=== PATIENT | male | born 1955 | race Caucasian/White ===

== ENCOUNTER → 2020-04-11 14:05 | Outpatient (CLI) | payer MEDICARE, OTHER, SELFPAY ==
[2020-04-11 15:20] LABS: Add Manual Diff / Slide Review NO; Basophils Absolute Auto 100 /uL (0-100); Basophils Percent Auto 0.7 % (0-2); Eosinophils Absolute Auto 100 /uL (0-450); Eosinophils Percent Auto 1.5 % (2-4); Hematocrit 40.9 % (41-53); Hemoglobin 14.6 g/dL (13.5-17.5); Lymphocytes Absolute Auto 1700 /uL (1100-4500); Lymphocytes Percent Auto 18.6 % (25-40); Mean Corpuscular HGB Conc 35.6 % (30-36); Mean Corpuscular Hemoglobin 31.1 PG (26-34); Mean Corpuscular Volume 87.4 fL (80-100); Monocytes Absolute Auto 800 /uL (0-900); Monocytes Percent Auto 8.6 % (3-14); Neutrophils Absolute Auto 6300 /uL (1500-7000); Neutrophils Percent Auto 70.6 % (50-75); Platelet Count 228 X10^3/uL (150-400); Red Blood Cell Count 4.68 X10^6/uL (4.5-5.9); Red Cell Distribution Width 13.9 % (11.6-14.8); White Blood Cell Count 8.9 X10^3/uL (4.5-11.0)
[2020-04-11 16:08] LABS: Alanine Aminotransferase 33 IU/L (<50); Albumin 4.4 g/dL (3.5-5.0); Albumin Globulin Ratio 1.6 (1.0-2.8); Alkaline Phosphatase 44 U/L (38-126); Aspartate Aminotransferase 39 IU/L (17-59); BUN Creatinine Ratio 15.1 (6-22); Bilirubin Total 0.5 mg/dL (0.2-1.3); Blood Urea Nitrogen 14 mg/dL (9-20); Calcium 9.7 mg/dL (8.4-10.2); Carbon Dioxide 23 mmol/L (22-32); Chloride 108 mmol/L (98-107); Estimated Glomerular Filt Rate > 60.0 mL/min (>60); Globulin 2.8 g/dL (1.7-4.1); Glucose 88 mg/dL (80-110); HEMOLYSIS < 15 (0-50); Potassium 3.9 mmol/L (3.4-5.1); Sodium 139 mmol/L (137-145); Total Protein 7.2 g/dL (6.3-8.2)
[2020-04-11 16:15] LABS: NT-proBNP (BNP-Adult 18+) 206 pg/mL (<125)
== END ==
PROVIDERS: Referring Provider Internal Medicine Cardiovascular Disease; Visit Provider Internal Medicine Cardiovascular Disease
DX: R06.09 Other forms of dyspnea (principal); I50.42 Chronic combined systolic (congestive) and diastolic (congestive) heart failure
CPT/HCPCS: 36415; 80053; 83880; 85025

== ENCOUNTER 2020-07-03 15:31 | Emergency (ER) | payer MEDICARE, OTHER, SELFPAY ==
[2020-07-03 15:43] VITALS: BP 161/83; PULSE 67; RESP 18; TEMP 36.5; O2SAT 96; BMI 33.7
--- NOTE | 2020-07-03 15:56 | ED_ITS ---
HPI - Male Genitourinary General Chief complaint: Urogenital-Male Stated complaint: blood in urine, has a cath in. Time Seen by Provider: 07/03/20 15:40 Source: patient Mode of arrival: Ambulatory Limitations: no limitations History of Present Illness HPI Narrative: 64-year-old gentleman with a history of BPH, hyperlipidemia, hypertension, reflux and recurrent sinus issues with 2 coronary artery stents presents with recurrent hematuria. He 1st had an episode of hematuria on June 22 was seen at [facility] eventually hospitalized with hematuria and acute urinary retention. Was discharged home with [facility][id number] and assumed he was supposed to complete 14 days of antibiotics. A home health nurse was out today and noticed increasing hematuria. He had noticed some bleeding last night that was significantly worse this morning. He talked to Dr. Pinto, urologist with whom he has his 1st appointment on July 11, and her nurse recommended that he come to the ER for additional evaluation. Approximately an hour ago the hematuria seem to have stopped and over the last hour he has had mostly yellow urine output from his catheter. At 1 point he did have some blood clots at no point did he ever have blood clot significant enough that it impaired catheter flow. He describes no fevers cough, chills, chest pain, palpitations, dyspnea, lower extremity edema, abdominal pain or flank pain at this time Related Data Allergies Allergy/AdvReac Type Severity Reaction Status Date / Time No Known Drug Allergies Allergy Verified 07/03/20 17:58 Review of Systems Review of Systems Narrative: Remainder of review of systems including constitutional, ENT, cardiovascular, respiratory, GI, , musculoskeletal, skin, neurologic and psychiatric systems reviewed and are unremarkable except as noted in HPI. Patient History Medical History Acid reflux (Acute) BPH (benign prostatic hyperplasia) (Acute) Coronary artery disease (Acute) Hyperlipidemia (Acute) Hypertension (Acute) Social History Smoking Status: Former smoker Smoking Status: Former smoker alcohol intake frequency: a few times a month Alcohol type: wine Substance Use Type: does not use Exam Narrative Exam Narrative: General: Healthy appearing, in no acute distress. Able to give a complete and coherent history. Well-nourished well-developed HEENT: Moist mucous membranes, normal sclera with reactive pupils, Respiratory: Lungs are clear to auscultation, no wheezing no rales no rhonchi. Full and symmetrical air movement Cardiac: Regular rate and rhythm no murmurs no bruits Abdomen: Soft nontender good bowel tones, no flank pain Skin: Warm and dry, no rashes Neurologic: Grossly neurologically intact with no obvious asymmetries or abnormalities Extremities: No trauma, well perfused Psych: Cooperative, appropriate insight and affect : Silverio catheter in place draining blood-tinged urine without clots Initial Vital Signs Initial Vital Signs: Vital Signs Temperature 97.7 F 07/03/20 15:43 Pulse Rate 67 07/03/20 15:43 Respiratory Rate 18 07/03/20 15:43 Blood Pressure 161/83 H 07/03/20 15:43 Pulse Oximetry 96 07/03/20 15:43 Course Orders Ordered: ED Orders 07/03/20 16:23 Urine Microscopic Stat Vital Signs Vital signs: Vital Signs - 8 hr 07/03/20 15:43 07/03/20 17:42 Temperature 97.7 F Pulse Rate 67 80 Respiratory Rate 18 Blood Pressure 161/83 H 148/76 H Pulse Oximetry 96 99 MDM - Male Genitourinary Medical Records Attestation: I reviewed the patient's medical records. Lab Data Lab results narrative: Labs from [facility] or available. Urine from June 22 shows 100,000 E coli and is pansensitive. Cipro should continue to be an appropriate antibiotic for him based on these results Labs: Lab Results 07/03/20 Range/Units 16:23 Urine RBC 30-100/hpf H (0-5/HPF) Urine WBC 0-1/hpf (0-5/HPF) Ur Squamous Epith Cells 0-1 /hpf (0-5/HPF) Urine Bacteria None seen (None) Ur Culture Indicated? Cult not indicated Urine Dip Bedside Urine Glucose Negative Bedside Urine Bilirubin - Negative Bedside Urine Ketone - Negative Urine Specific [place] 1.015 Bedside Urine Occult Blood +++ Bedside Urine pH 6.0 Bedside Urine Protein - Negative Bedside Urine Urobilinogen - Negative Bedside Urine Nitrite - Negative Bedside Urine Leukocytes - Negative Esterase MDM Narrative Medical decision making narrative: 64-year-old gentleman with recent UTI gross hematuria and BPH Silverio catheter in place. 24 hours of recurrent hematuria but at this point seems to be clearing. At no point has his catheter been blocked with clots. Urinalysis today suggests only blood with no evidence of infection culture will be pending. Based on urine culture from June 22 he should continue the ciprofloxacin for the full 14 day course as originally prescribed and should be able to discontinue the ciprofloxacin on July 06. Silverio catheter remains in place. No evidence of sepsis. Patient is safe for home discharge with all appropriate follow-up already scheduled. Discharge Plan Departure Patient Disposition: Home Clinical Impression: BPH (benign prostatic hyperplasia) Qualifiers: Lower urinary tract symptom presence: symptoms present Lower urinary tract symptom detail: urinary obstruction Qualified Code(s): N40.1 - Benign prostatic hyperplasia with lower urinary tract symptoms Hypertension Qualifiers: Hypertension type: essential hypertension Qualified Code(s): I10 - Essential (primary) hypertension Hematuria Qualifiers: Hematuria type: gross Qualified Code(s): R31.0 - Gross hematuria Discharge Date/Time: 07/03/20 17:58 Instructions: How to Care for Your Silverio Catheter -- Male Activity Restrictions/Additional Instructions: Thank you for coming in today Your urinalysis today does not suggest a recurrent bladder infection. Your lab work from [facility] shows an E coli bladder infection on June 22 that was sensitive to all the antibiotics that we tested for. This means that the ciprofloxacin that you are currently taking remains the perfect drug for you. You should complete a full 14 day course. As it was started on June 22 you can stop after you have taken the evening dose on July 06. You may still have some intermittent bleeding from your catheter. As long as urine is still flowing and there are some any clots that you are blocking the catheter there is not much more to do about that at this time. Please keep your appointment with on July 11 as scheduled If you have further problems, increasing pain, flank pain, fevers, chills or obstructing clots in your catheter please feel free to return to the emergency department Referrals: Alison Pinto MD [Non-Staff] -
[2020-07-03 16:44] LABS: Bacteria Urine None Seen
[2020-07-03 16:56] LABS: Culture Indicated Urine Cult Not Indicated; RBC Urine 30-100/HPF (0-5/HPF); Squamous Epithelial Cell Urine 0-1 /HPF (0-5/HPF); WBC Urine 0-1/HPF (0-5/HPF)
[2020-07-03 17:42] VITALS: BP 148/76; PULSE 80; O2SAT 99
== END 2020-07-03 17:58 | disposition home or self-care (01) ==
PROVIDERS: Emergency Provider Emergency Medicine
DX: N40.1 Benign prostatic hyperplasia with lower urinary tract symptoms (principal); I10 Essential (primary) hypertension; R31.0 Gross hematuria; E78.5 Hyperlipidemia, unspecified; Z95.5 Presence of coronary angioplasty implant and graft
CPT/HCPCS: 81003; 81015; 99282

== ENCOUNTER → 2020-07-09 12:12 | Outpatient (CLI) | payer MEDICARE, OTHER, SELFPAY ==
--- NOTE | 2020-07-09 | DI.RAD.S_ITS ---
PROCEDURE: FL BARIUM SWALLOW INDICATIONS: Gastro-esophageal reflux disease without esophagit COMPARISON: [facility], , UPPER GI AIR CONTRAST WITH KUB, 08/30/2007, 9:45. FINDINGS: Function: There is normal esophageal peristalsis. No elicited gastroesophageal reflux. There is normal transit of a calibrated barium tablet through the esophagus into the stomach. Morphology: There is a large Zenker's diverticulum measuring 2.4 x 4.2 cm. A small hiatal hernia is present. Air-contrast images demonstrate normal mucosal morphology. No esophageal strictures ore xtrinsic mass effects or diverticula. Limited images of the stomach demonstrate normal appearance. IMPRESSION: 1. A large Zenker's diverticulum. 2. Small hiatal hernia. Dictated by: Mario White M.D. on 07/09/2020 at 13:30 Approved by: Mario White M.D. on 07/09/2020 at 13:33
== END ==
PROVIDERS: Referring Provider Internal Medicine Pulmonary Disease; Visit Provider Internal Medicine Pulmonary Disease
DX: K21.9 Gastro-esophageal reflux disease without esophagitis (principal); K22.5 Diverticulum of esophagus, acquired; K44.9 Diaphragmatic hernia without obstruction or gangrene
CPT/HCPCS: 74220

== ENCOUNTER → 2023-02-01 13:05 | Outpatient (CLI) | payer MEDICARE, OTHER, SELFPAY ==
--- NOTE | 2023-02-01 | DI.CT.S_ITS ---
PROCEDURE: CT CHEST WO CON INDICATIONS: Solitary pulmonary nodule TECHNIQUE: Noncontrast 2.0-2.5 mm thick sections acquired from the pulmonary apices to the posterior costophrenic angles. 7 mm thick axial MIP and 5 mm coronal and sagittal reformats were then acquired. A low radiation dose technique was utilized. COMPARISON: [facility], CT, CT-IVP, 07/05/2012, 10:12. [facility], RG, CT THORAX W/O CONTRAST, 12/18/2021, 12:41. (2019 CT not available). FINDINGS: Image quality: Diagnostic, given the low radiation dose technique. Lungs and pleura: A few pulmonary nodules. For example: -Right middle lobe measuring 0.7 cm, (3/174), previously 0.8 cm on 12/18/2021. Reported as stable since 06/24/[address] report. -Left lower lobe measuring 0.6 cm, (3/164), previously 0.7 cm, and more remotely 0.6 cm on 07/05/2012. Tree-in-bud nodular opacity in the inferior aspect of the right middle lobe is nearly resolved. No significant acute airspace opacity. The airways are clear. No pleural effusion. No pneumothorax. Mediastinum: Heart size is normal. Three-vessel coronary artery calcifications. No pericardial effusion. No mediastinal adenopathy by size criteria. Thoracic aorta and central pulmonary arteries are normal in size. Calcification at the aortic arch. Esophagus is normal in caliber. No hiatal hernia. Bones and chest wall: No suspicious bony lesions. No vertebral body compression fractures. No axillary or supraclavicular adenopathy by size criteria. Thyroid gland is unremarkable. Abdomen: Visualized upper abdomen solid organs and bowel loops appear normal in the absence of contrast. IMPRESSION: 1. No new or enlarging pulmonary nodules. Right middle lobe and left lower lobe pulmonary nodules are unchanged. The left lower lobe pulmonary nodule is stable since at least 2011 suggesting a benign etiology. Follow-up CT chest could be considered. 2. Right middle lobe tree-in-bud nodular opacity is essentially resolved. 3. Three-vessel coronary artery calcifications. Fleischner Society criteria for SOLID lung nodule followup. Nodule size (mm)Low-risk patientHigh-risk patient<6 (single or multiple)No routine followup.Optional CT at 12 months. 6-8 (single or multiple)CT at 6-12 months, then optional CT at 18-24 mo.CT at 6-12 months, then CT at 18-24 months. >8 (single)CT at 3 months, PET-CT, or biopsy. Same as for low-risk pts. >8 (multiple)CT at 3-6 months, then optional CT at 18-24 mo.CT at 3-6 months, then CT at 18-24 months. Fleischner Society criteria for SUB-SOLID lung nodule followup. Solitary pure ground-glass nodules<6 mm (ground glass or part solid)No followup needed. 6 mm or larger (ground glass)CT at 6-12 months to confirm persistence, then CT every 2 years until 5 years.6 mm or larger (part solid)CT at 3-6 months to confirm persistence, then annual CT until 5 years if unchanged and solid component remains <6 mm. Multiple sub-solid nodules<6 mmCT at 3-6 months, then CT consider at 2 & 4 years for high risk patients. [address] at 3-6 months. Subsequent management based on most suspicious lesions. Recommendations do not apply to lung cancer screening, patients with immunosuppression, or patients with known primary cancer. Dictated by: Tyler Segal M.D. on 02/11/2023 at 10:52 Approved by: Tyler Segal M.D. on 02/11/2023 at 11:04
== END ==
PROVIDERS: PCP Family Medicine; Referring Provider Internal Medicine Pulmonary Disease; Visit Provider Internal Medicine Pulmonary Disease
DX: R91.8 Other nonspecific abnormal finding of lung field (principal); I25.10 Atherosclerotic heart disease of native coronary artery without angina pectoris
CPT/HCPCS: 71250